=== PATIENT | female | born 1960 | race Caucasian/White ===

== ENCOUNTER 2019-01-25 01:51 | Emergency (ER) | payer OTHER, SELFPAY ==
[2019-01-25 01:52] VITALS: BP 208/91; PULSE 86; RESP 18; TEMP 36.5; O2SAT 93; BMI 42.0
--- NOTE | 2019-01-25 01:57 | CT_ITS ---
HISTORY: RUQ PAIN X 2 HOURS WITH NAUSEA EXAMINATION: CT Abdomen And Pelvis W/ Contrast TECHNIQUE: Helically acquired images were obtained of the abdomen and pelvis following IV contrast. A radiation dose optimization technique was used for this scan. IV Contrast dosage and agent: 100ML Isovue 300 Oral contrast: Yes COMPARISON: None FINDINGS: Large body habitus. Lower thorax: Right lower lobe atelectasis with collapse and the collapsed lung shows intermixed calcifications. In addition, the posterior medial lower right hemithorax shows a calcified pleural plaque with coarse calcifications extending approximately 6 cm in craniocaudal dimension. No pleural effusion is seen. The left lung base appears clear. Mild cardiomegaly. No pericardial effusion seen. The gallbladder is normally distended and shows multiple low-density cholesterol type stones. No biliary dilatation. Mild hepatomegaly. No focal hepatic lesion. Normal spleen and pancreas. Both kidneys are normal in position. Bilateral renal opacification without evidence of hydronephrosis, pyelonephritis, or suspicious renal lesion. Adrenal glands are not enlarged. Abdominal aorta is atherosclerotic and is normal in caliber. No ascites or retroperitoneal lymph node enlargement. GI tract: No obstruction. Normal appendix. Numerous sigmoid diverticula without diverticulitis. Pelvis: Anteverted uterus which tilts to the right. Uterine fundus 3.5 x 3.4 cm circumscribed hypo-dense lesion compatible with a fibroid. Left ovarian mild enlargement secondary to cysts with the largest cyst measuring approximately 2.6 cm in maximal dimension. The pelvis shows no free fluid or lymph node enlargement. Normal urinary bladder. Bones: No acute osseous abnormality. CT/Abdomen/Pelvis WITH Contrast IMPRESSION: 1. Cholelithiasis and this correlates with the clinical history. No biliary dilatation or acute disease seen. 2. Diverticulosis coli. 3. Fibroid uterus. Left ovarian mild enlargement secondary to cystic disease with the largest cyst measuring approximately 2.6 cm 4. Right lower lobe chronic appearing collapse with an adjacent calcified pleural plaque. A central obstructing pulmonary lesion is not excluded. Individualized dose optimization techniques were used for this CT. at 0579 Reported and signed by: Ar Weldon MD Electronically Signed: Ar Weldon, at 5:27 EDT Tel , Service support ,
--- NOTE | 2019-01-25 01:59 | EKG12_ITS ---
Test Reason : Blood Pressure : / mmHG Vent. Rate : 084 BPM Atrial Rate : 084 BPM P-R Int : 166 ms QRS Dur : 102 ms QT Int : 376 ms P-R-T Axes : 036 048 072 degrees QTc Int : 444 ms Normal sinus rhythm Normal ECG Confirmed by MARIKA ORELLANA, MELANIE ([id number]), food editor AISHWARYA GALARZA ([id number] on 01/28/2019 1:35:51 PM Referred By: Confirmed By:MELANIE HAIRSTON MD
[2019-01-25] MEDS: Ondansetron 4 MG/2 ML Vial IV (02:04)
[2019-01-25] MEDS: Morphine 4 MG/ML Syringe IV (02:04)
[2019-01-25] MEDS: 0.9% Normal Saline 1,000 ML 1000 ML IV (02:04)
[2019-01-25 02:06] LABS: Absolute Lymphocyte Count 1.86 X10^3/ul (0.83-4.51); Absolute Neutrophil Count 7.4 X10^3/uL (2.0-7.7); Basophil# 0.03 X10^3/uL; Basophil% 0.3 % (0-1); Hematocrit 43.3 % (37-47); Hemoglobin 14.3 g/dl (12.0-15.0); Lymphocyte # 1.86 X10^3/ul (4.0); Lymphocyte % 18.2 % (19-41); Mean Corpuscular Hgb 29.7 pg (27.0-32.0); Monocyte# 0.82 X10^3/uL; Neutrophil % 72.2 % (47-70); POSITIVE COUNT NO; POSITIVE DIFFERENTIAL NO; POSITIVE MORPHOLOGY NO; Platelet Count 287 K/mm3 (150-450); RBC Distribution Width CV 13.6 % (11.6-14.6); RBC Distribution Width SD 44.8 fl (35.1-43.9); Red Blood Count 4.81 M/mm3 (4.2-5.4); White Blood Count 10.2 K/mm3 (4.4-11.0)
--- NOTE | 2019-01-25 02:06 | ED.DCSUM_ITS ---
- ER Visit Summary Date of Service: 01/25/19 Chief Complaint: Abdominal pain History of Present Illness: The patient is a 58 F presenting with abdominal pain for the past 2 hours. She has pain in the right upper quadrant. She is concerned she may be having a gallbladder attack. She had similar symptoms in 2014 and presented to the ED. At that time she was told she likely had biliary colic. She was advised to follow-up with surgery. She states she felt improved and never followed up. She started to have similar symptoms 2 hours ago. She has nausea vomiting x2. Denies fever. Denies diarrhea or constipation. Denies blood in her stool or emesis. Denies other complaints. Physical Examination: Vitals are stable. Patient is afebrile. Alert no acute distress. HEENT exam is unremarkable. Neck is supple. Lungs are clear and equal bilaterally. Heart is regular rate and rhythm. Abdomen is soft right upper quadrant tenderness with no rebound or guarding Extremities are unremarkable. Skin is warm and dry. Remainder of exam is unremarkable. Emergency Department Course and Treatment: Patient given morphine, Zofran IV. CBC, chemistries unremarkable. Liver lipase are normal. CT abdomen pelvis shows cholelithiasis and this correlates with the clinical history. No biliary dilatation or acute disease seen. Diverticulosis coli. Fibroid uterus. Left ovarian mild enlargement secondary to cystic disease with the largest cyst measuring approximately 2.6 cm. Right lower lobe chronic appearing collapse with an adjacent calcified pleural plaque. A central obstructing pulmonary lesion is not excluded. Chest xray shows right basilar focal atelectasis/scarring. Left basilar mild parenchymal scarring, as well. No definite acute cardiopulmonary disease.On reevaluation, patient is feeling improved. She is resting comfortably. She is advised to follow-up with Dr. Martinez for cholelithiasis. She is advised importance of follow-up with primary care physician for abnormal CT results. Patient understands and will follow-up with Dr Simeon. Advised return to ED for worsening complaints. Disposition: Discharge home Impression: Cholelithiasis This note was generated with [employer] dictation software. It may contain incorrect words, spelling, and punctuation that were not noted in review of the chart prior to signing ED Disposition - Plan for ED Patient: Instructions: ED Abdominal Pain [facility] Referrals: Cody Simeon [NON-STAFF] - Mariajose Martinez MD [STAFF PHYSICIAN] -
[2019-01-25 02:23] LABS: AST(SGOT) 15 U/L (15-37); Alanine Aminotransfer ALT/SGPT 31 U/L (13-56); Albumin, Serum 3.5 g/dL (3.2-5.0); Alkaline Phosphatase 89 U/L (45-117); Anion Gap 7 (5-15); BUN 18 mg/dL (7-18); BUN/Creat Ratio 18.9 RATIO (10-20); Bilirubin, Direct 0.09 mg/dL (0.00-0.30); Chloride 103 mmol/L (98-107); Creatinine, Serum 0.95 mg/dL (0.55-1.02); EST Glomerular Filtration Rate 64 mL/min (>60); Est Glom Filt Rate - Afr Amer 78 mL/min (>60); Globulin 4.9 g/dL (2.2-4.2); Glucose 116 mg/dL (74-106); Lipase 217 U/L (73-393); Protein, Total 8.4 g/dL (6.4-8.2); Sodium Level 138 mmol/L (136-145)
[2019-01-25 03:39] VITALS: BP 165/86; PULSE 89; RESP 18
--- NOTE | 2019-01-25 05:40 | RAD_ITS ---
HISTORY: cough, upper abdomen pain EXAMINATION/TECHNIQUE: XR Chest 2 Views: COMPARISON: CT abdomen and pelvis 01/25/2019 FINDINGS: As correlated with current abdominal CT exam, focal atelectasis/scarring within the right lower lobe at the right cardiophrenic angle region. This finding is poorly seen on the lateral view. Left basilar mild parenchymal scarring, as well. The heart is upper normal in size. No vascular congestion or pleural effusion. No pneumothorax. RAD/Chest PA and Lateral IMPRESSION: 1. Right basilar focal atelectasis/scarring. Details above. Left basilar mild parenchymal scarring, as well. 2. No definite acute cardiopulmonary disease. at 0603 Reported and signed by: Ar Weldon MD Electronically Signed: Ar Weldon, at 6:02 EDT Tel , Service support ,
--- NOTE | 2019-01-25 06:08 | ED.DEP ---
ED Disposition - Plan for ED Patient: Instructions: ED Abdominal Pain [facility] Referrals: Gisela De La O MD [STAFF PHYSICIAN] - Kapil Husain MD [NON-STAFF] - Mariajose Martinez MD [STAFF PHYSICIAN] -
--- NOTE | 2019-01-25 06:11 | ED.DEP ---
ED Disposition - Plan for ED Patient: Instructions: ED Abdominal Pain [facility] Referrals: Mariajose Martinez MD [STAFF PHYSICIAN] - Cody Simeon [NON-STAFF] -
[2019-01-25 06:18] VITALS: BP 126/72; PULSE 92; RESP 16; O2SAT 98
== END 2019-01-25 06:18 | disposition home or self-care (01) ==
PROVIDERS: Emergency Provider Emergency Medicine
DX: K80.20 Calculus of gallbladder without cholecystitis without obstruction (principal); K57.30 Diverticulosis of large intestine without perforation or abscess without bleeding; D25.9 Leiomyoma of uterus, unspecified; N83.202 Unspecified ovarian cyst, left side; J98.19 Other pulmonary collapse; J92.9 Pleural plaque without asbestos; J98.11 Atelectasis; J98.4 Other disorders of lung; R91.1 Solitary pulmonary nodule
CPT/HCPCS: 71046; 74177; 80048; 80076; 83690; 85025; 93005; 96361; 96374; 96375; 99283; J7030; Q9967; A4216; J2405

== ENCOUNTER 2024-09-09 05:49 | Emergency (ER) | payer OTHER, SELFPAY ==
[2024-09-09 05:51] VITALS: BP 189/73; PULSE 111; RESP 20; TEMP 37.6; O2SAT 94; BMI 43.8
--- NOTE | 2024-09-09 05:53 | ED.VIS.DYS ---
HPI History of Present Illness Chief Complaint: Cold Sx [facility] Medical History (Updated 09/09/24 @ 05:56 by Tamar Branch) COPD (chronic obstructive pulmonary disease) Home Medications ?Medication ?Instructions ?Recorded ?Last Taken ?Type albuterol sulfate 90 mcg/actuation 2 inh inhalation Q6H PRN shortness 09/09/24 Unknown Rx breath activated powder inhaler of breath or wheezing 7 days #1 ea azithromycin 500 mg tablet 500 mg PO DAILY 7 days #7 tabs 09/09/24 Unknown Rx ondansetron 4 mg disintegrating 4 mg PO Q8H PRN PRN Nausea #10 tabs 09/09/24 Unknown Rx tablet oseltamivir 75 mg capsule (Tamiflu) 75 mg PO BID 5 days #10 caps 09/09/24 Unknown Rx prednisone 50 mg tablet 50 mg PO DAILY #7 tabs 09/09/24 Unknown Rx Allergy/AdvReac Type Severity Reaction Status Date / Time No Known Allergies Allergy Verified 09/09/24 05:51 Surgical History (Updated 09/09/24 @ 05:56 by Tamar Branch) Hx of nasal polypectomy History of tonsillectomy and adenoidectomy Hx of cholecystectomy Social History Smoking Status: Never smoker EXAM Physical Exam Const Vital Signs: 09/09/24 05:51 09/09/24 05:55 09/09/24 05:55 Temperature 99.7 F H Temperature Source Oral Pulse Rate 111 H Respiratory Rate 20 H Respiratory Effort Short of Breath Labored Short of Breath Labored Respiratory Depth Shallow Respiratory Pattern Tachypnea Tachypnea Blood Pressure 189/73 H Blood Pressure Mean 111 Pulse Ox 94 Oxygen Delivery Method Room Air Room Air Oxygen Flow Rate (L/min) 09/09/24 06:22 09/09/24 06:29 Temperature Temperature Source Pulse Rate 105 H Respiratory Rate 18 Respiratory Effort Respiratory Depth Respiratory Pattern Blood Pressure Blood Pressure Mean Pulse Ox 94 Oxygen Delivery Method Nasal Cannula Oxygen Flow Rate (L/min) 2 MDM MDM MDM Narrative Medical decision making narrative: HISTORY OF PRESENT ILLNESS: 63-year-old female history of COPD presents with cough and cold symptoms. Notes began 3 days ago. No she has not taken [id number] medications for her. She notes is worse tonight. Symptoms began 3 days ago with cough and associated shortness of breath and headache. No sick contacts. She is concerned she may have the flu. Patient denies sudden onset or thunderclap headache, denies maximal intensity within 1 minute, vomiting, neck pain, stiffness, changes in vision, fever, history malignancy, syncope, or seizures associated with headache. The patient denies recent surgery in the last 4 weeks or immobilization in the last 3 days, denies previous diagnosis of DVT or PE, hemoptysis, unilateral leg swelling or malignancy with treatment the last 6 months or palliative. No estrogen use noted. REVIEW OF SYSTEMS: Pertinent positives: Cough, shortness of breath and headache Pertinent negatives: Syncope, focal weakness PHYSICAL EXAM: Nursing triage notes reviewed, Vital signs reviewed Constitutional: please see mdm HENT: MMM Eyes: Pupils equal round and reactive to light, Extraocular muscles intact Neck: No stridor, no JVD, full neck ROM Lungs: Clear to auscultation, No wheezing or rales. No increased work of breathing, no conversational dyspnea, no accessory muscle use, no nasal flaring. No respiratory distress noted Heart: Regular rate and rhythm, No murmurs, No rubs and No gallops, 2+ distal pulses (radial, femoral, posterior tibial) in all extremities Abdomen: Soft, there is no tenderness, rigidity, rebound or guarding, no obvious peritoneal signs, no palpable pulsatile abdominal masses, no auscultated abdominal bruit : No CVAT Extremities: No edema Neuro: Alert and oriented x3, neuro exam at baseline, cranial nerves II through XII are intact. No pain with extraocular muscle movement. There is negative test of skew. 5 of 5 strength in upper and lower extremities in flexion extension. Intact sensation to light touch in upper and lower extremity dermatomes. No truncal or extremity ataxia. No dysdiadochokinesia. Normal gait. 2+ reflexes in upper and lower extremities. No meningeal signs. Negative Babinski. NIH of 0. Skin: No rash or lesions noted MEDICAL DECISION MAKING: Chief Complaint: SOB External records reviewed: Reviewed prior imaging studies, cardiovascular testing Factors affecting care: History of COPD Social determinants of health: none History obtained from others: none Consults: none [facility] Narrative: The patient was initially hypertensive with a blood pressure of 189/73, tachycardic with a rate of 111, tachypneic with respiratory 20, borderline febrile the temperature 99.7. Patient saturating 94% room air. Exam with bilateral wheezing consistent with COPD exacerbation clinically. I considered the following differential diagnosis: COVID, RSV, flu, pneumonia, COPD exacerbation, arrhythmia, anemia, electrolyte disturbance, ACS I obtained a broad lab and imaging workup to further elucidate etiology of patient's complaints Treat the patient symptomatically DuoNeb breathing treatments, steroids, Toradol for headache and fever. Tylenol for fever. ALL IMAGES (IF OBTAINED) HAVE BEEN PERSONALLY REVIEWED AND INTERPRETED BY MYSELF. EKG with sinus tachycardia rate of 109, normal axis, normal intervals, no STEMI CBC without leukocytosis, severe anemia, no thrombocytopenia. BMP without evidence of significant electrolyte abnormalities, no anion gap, no acute kidney injury. High-sensitivity troponin is negative, no evidence of myocardial ischemia COVID flu RSV swab showed the following: Flu a positive Chest x-ray was read reviewed personally by myself showed no evidence of obvious focal infiltrate or pneumonia. The synthesis of the patient's history, physical exam, labs images suggest likely INfluenza induced COPD exacerbation. Patient was ambulated here was noted to have a exertional pulse ox of 91% which is acceptable the setting of COPD. Given her history of COPD will provide Tamiflu. Given signs of COPD exacerbation I will treat the patient with azithromycin and prednisone. I provided Zofran for nausea vomiting control. Also provide the patient with a refill of her inhaler for as needed bronchodilation. The patient and/or family, caregivers express understanding. The patient and/or family, caregivers agrees with the plan. Shared decision making: I will have a discussion with the patient and or visitors regarding risk/benefits of further testing or admission. They will be made aware of of the risk/benefits inherent in this decision they will be given the opportunity to voice understanding. Total critical care time today provided was at least 0 minutes. This excludes separately billable procedures. Critical care time (if documented) is secondary to the patient having high probability of clinically significant/life threatening deterioration in the patient's condition which required my urgent intervention. Impression: 1. Cough 2. Shortness breath 3. COPD exacerbation Dispo: Discharge home This note was generated with [employer] dictation software. It may contain incorrect words, spelling, and punctuation that were not noted in review of the chart prior to signing. Lab Data Labs: Laboratory Results - last 24 hr 09/09/24 06:10 WBC 6.9 RBC 4.86 Hgb 14.7 Hct 44.1 MCV 90.7 MCH 30.2 MCHC 33.3 RDW Std Deviation 44.0 H RDW Coeff of Jos 13.2 Plt Count 246 MPV 8.8 Immature Gran % (Auto) 0.400 Neut % (Auto) 82.4 H Lymph % (Auto) 4.4 L [place] % (Auto) 11.5 H Eos % (Auto) 0.7 Baso % (Auto) 0.6 Absolute Neuts (auto) 5.7 Absolute Lymphs (auto) 0.30 L Nucleated RBC % 0 Sodium 135 L Potassium 4.4 Chloride 104 Carbon Dioxide 28.0 Anion Gap 3 L BUN 11 Creatinine 0.88 Estim Creat Clear Calc 75.04 Est GFR (MDRD) Af Amer 83 Est GFR (MDRD) Non-Af 69 BUN/Creatinine Ratio 12.4 Glucose 133 H Calcium 9.1 Troponin I High Sens 8 Discharge Plan Triage Chief Complaint: Cold Sx ED Provider: Deion Brown Dx/Rx/DC Orders Instructions: ED COPD Flare Prescriptions: New azithromycin 500 mg tablet 500 mg PO DAILY 7 Days Qty: 7 0RF prednisone 50 mg tablet 50 mg PO DAILY Qty: 7 0RF oseltamivir [Tamiflu] 75 mg capsule 75 mg PO BID 5 Days Qty: 10 0RF ondansetron 4 mg tablet,disintegrating 4 mg PO Q8H PRN PRN (Reason: Nausea) Qty: 10 0RF albuterol sulfate 90 mcg/actuation aerosol powdr breath activated 2 inh inhalation Q6H PRN (Reason: shortness of breath or wheezing) 7 Days Qty: 1 0RF Primary Care Provider: Cody Simeon Referrals: Cody Simeon MD [Primary Care Provider] - Activity Restrictions/Additional Instructions: Thank you for trusting us with your care today! Your labs and images are consistent with influenza A. This is likely exacerbating her underlying COPD. Please use inhaler as prescribed and as needed for wheezing and difficulty breathing. To further treat your COPD exacerbation please take prednisone and azithromycin as prescribed. I provided you with an antiviral medicine called Tamiflu which I would like for you to take twice a day for the next 5 days. Tamiflu can sometimes cause nausea so I provided you with Zofran which is a nausea medicine you can take as needed for nausea and vomiting. Please take Tylenol (2 pills, 650 mg), ibuprofen (2 pills, 400 mg) every 6 hours as needed for pain and fever control. Please return to the emergency department if your symptoms change or worsen. Please follow with your primary care physician for further outpatient evaluation and management. Print Language: Tunisian Disposition Disposition: Home, Self Care Discharge Date/Time: 09/09/24 07:16
[2024-09-09 05:55] VITALS: O2SAT 94
--- NOTE | 2024-09-09 06:03 | EKG12_ITS ---
Test Reason : sob Blood Pressure : */* mmHG Vent. Rate : 109 BPM Atrial Rate : 109 BPM P-R Int : 150 ms QRS Dur : 84 ms QT Int : 328 ms P-R-T Axes : 45 38 169 degrees QTcB Int : 441 ms Sinus tachycardia Septal infarct , age undetermined Abnormal ECG Confirmed by KRISTEN ORELLANA, CAITLYN ([id number]), editor managing newspaper RICKIE NOLAND ([id number]) on 09/10/2024 9:18:00 AM Referred By: Confirmed By: CAITLYN PETERSON MD
[2024-09-09] MEDS: Acetaminophen 325 MG Tablet 650 MG PO (06:10)
[2024-09-09] MEDS: Ketorolac 15 MG/ML Vial IV (06:10)
[2024-09-09] MEDS: MethylPREDNISolone 125 MG/2 ML Vial IV (06:10)
[2024-09-09 06:20] LABS: Absolute Neutrophil Count 5.7 X10^3/uL (2.0-7.7); Basophil# 0.04 X10^3/uL; Basophil% 0.6 % (0-1); Eosinophil# 0.05 X10^3/uL; Eosinophils% 0.7 % (0-5); Hematocrit 44.1 % (37-47); Hemoglobin 14.7 g/dL (12.0-15.0); Lymphocyte % 4.4 % (19-41); Mean Corp Hgb Conc 33.3 g/dL (32-36); Mean Corpuscular Hgb 30.2 pg (27.0-32.0); Mean Corpuscular Volume 90.7 fL (81-99); Mean Platelet Vol. 8.8 fl (6.2-12.0); Monocyte# 0.79 X10^3/uL; Monocyte% 11.5 % (0-10); NRBC Flagged by Analyzer 0 % (0-5); Neutrophil # 5.65 X10^3/uL (2.7-7.7); Neutrophil % 82.4 % (47-70); POSITIVE DIFFERENTIAL YES; Platelet Count 246 K/mm3 (150-450); RBC Distribution Width CV 13.2 % (11.6-14.6); Red Blood Count 4.86 M/mm3 (4.2-5.4); White Blood Count 6.9 K/mm3 (4.4-11.0)
[2024-09-09 06:22] VITALS: PULSE 105; RESP 18
[2024-09-09] MEDS: Ipratropium/Albuterol Sulfate 3 ML AMPUL.NEB INHALATION (06:22)
[2024-09-09 06:29] VITALS: O2SAT 94
[2024-09-09 06:37] VITALS: O2SAT 91
[2024-09-09 06:39] LABS: Anion Gap 3 (5-15); BUN 11 mg/dL (7-18); BUN/Creat Ratio 12.4 RATIO (10-20); Calcium,Total 9.1 mg/dL (8.5-10.1); Chloride 104 mmol/L (98-107); Creatinine, Serum 0.88 mg/dL (0.55-1.02); EST Glomerular Filtration Rate 69 mL/min (>60); Est Glom Filt Rate - Afr Amer 83 mL/min (>60); Estimated Creatinine Clearance 75.04 ml/min; Glucose 133 mg/dL (74-106); Potassium 4.4 mmol/L (3.5-5.1); Sodium Level 135 mmol/L (136-145); Troponin-I HS 8 pg/mL (3.0-54.0)
--- NOTE | 2024-09-09 06:40 | RAD_ITS ---
EXAM: XR CHEST, 1 VIEW CLINICAL INDICATION: Cough, shortness of breath TECHNIQUE: Frontal view of the chest. COMPARISON: XR Chest dated 01/25/2019 FINDINGS: LUNGS AND PLEURAL SPACES: No pulmonary consolidation. HEART: Stable borderline cardiomegaly. MEDIASTINUM: No mediastinal or hilar mass. BONES/JOINTS: No acute abnormality. RAD/Chest 1 View (Portable) IMPRESSION: No acute cardiopulmonary abnormality. Electronically Signed: Sung Damico MD at 8:59 EST ,
== END 2024-09-09 07:16 | disposition home or self-care (01) ==
PROVIDERS: Emergency Provider Emergency Medicine; PCP Family Medicine; Visit Provider Emergency Medicine
DX: J44.1 Chronic obstructive pulmonary disease with (acute) exacerbation (principal); R50.9 Fever, unspecified; R11.2 Nausea with vomiting, unspecified; R06.02 Shortness of breath; R05.9 Cough, unspecified; Z90.49 Acquired absence of other specified parts of digestive tract; R51.9 Headache, unspecified